=== PATIENT | male | born 1985 | race Caucasian/White ===

== ENCOUNTER 2019-04-09 18:17 | Emergency (ER) | payer SELFPAY ==
[~2019-04-09] VITALS: Ht 185.4 cm; Wt 50.8 kg
--- NOTE | 2019-04-10 07:58 | EKG ---
[facility] [address] [facility] [place] [address] Signed Sinus tachycardia Biatrial enlargement Rightward axis Pulmonary disease pattern Junctional ST depression, probably normal Abnormal ECG No previous ECGs available Confirmed by ANALI DIAZ MD ([id number] on 04/10/2019 7:58:27 AM Electronically Signed By: ANALI DIAZ MD 04/10/19 0758 PATIENT NAME: JOVANNI QUIJANO Electrocardiogram DATE OF : 83 PHYSICIAN: ANALI DIAZ MD REPORT #: [id number] REPORT IS CONFIDENTIAL AND NOT TO BE RELEASED WITHOUT AUTHORIZATION
== END 2019-04-09 20:55 | disposition home or self-care (01) ==
LOC: ED 18:17
DX: S70.02XA Contusion of left hip, initial encounter (principal); E86.0 Dehydration; W05.0XXA Fall from non-moving wheelchair, initial encounter; Z87.891 Personal history of nicotine dependence
CPT/HCPCS: 71045; 73502; 80053; 81001; 85025; 93005; 93010; 96360; 99284-25; J7030

== ENCOUNTER 2019-09-01 16:23 | Emergency (ER) | payer MEDICARE | END 2019-09-01 16:37 | disposition left against medical advice (07) | LOC: ED 16:23 | DX: Z53.21 Procedure and treatment not carried out due to patient leaving prior to being seen by health care provider (principal) ==